=== PATIENT | female | born 1955 | race Asian ===

== ENCOUNTER 2022-09-03 07:34 | Day surgery (SDC) | payer OTHER ==
[~2022-09-03] VITALS: Ht 154.9 cm; Wt 57.6 kg
[2022-09-03] MEDS ORDERED: fentaNYL citrate 0.05 MG/ML VIAL ONE (08:07)
[2022-09-03] MEDS ORDERED: MIDAZOLAM 5 MG/5 ML VIAL ONE (08:07)
[2022-09-03] MEDS ORDERED: diphenhydrAMINE 50 MG/ML VIAL ONE (08:07)
[2022-09-03] MEDS ORDERED: LIDOCAINE 2% 100 MG/5 ML UJET TP ONE (08:07)
[2022-09-03] MEDS ORDERED: fentaNYL citrate 0.05 MG/ML VIAL IVP ONE (09:25)
[2022-09-03] MEDS ORDERED: MIDAZOLAM 5 MG/5 ML VIAL IV ONE (09:25)
== END 2022-09-03 12:08 | disposition home or self-care (01) ==
LOC: MDS 07:34 → MMU 07:38 → MDS 12:08
PROVIDERS: ATTEND Internal Medicine Gastroenterology
DX: Z12.11 Encounter for screening for malignant neoplasm of colon (principal); D12.2 Benign neoplasm of ascending colon; D12.8 Benign neoplasm of rectum; K64.8 Other hemorrhoids; K57.30 Diverticulosis of large intestine without perforation or abscess without bleeding; I10 Essential (primary) hypertension; Z20.822 Contact with and (suspected) exposure to COVID-19; Z79.899 Other long term (current) drug therapy
CPT/HCPCS: 45385; 87426; J2250; J3010; J1200